=== PATIENT | male | born 1980 | race Caucasian/White ===

== ENCOUNTER 2023-04-15 08:42 | Emergency (ER) | payer OTHER, SELFPAY ==
--- NOTE | 2023-04-15 08:46 | ED.GENMED ---
History of Present Illness
General
Chief Complaint: Seizure
Source: patient and ambulance crew
Exam Limitations: none
Time Seen by Provider: 04/15/23 08:45
Nursing documentation reviewed up to this point in time: agreed with
History of Present Illness
History of Present Illness:
42-year-old male with history of epilepsy, last seizure was over 6 months ago, takes Depakote and Lamictal for his seizures, religiously takes his medications, was sitting on the bed of his young son getting preop lab work at [facility] urgent care for
bilateral myringotomy, when according to his he fell back on the bed, had a grand mal seizure lasting 1 to 2 minutes, came to and then had a second 1 lasting a few seconds and none since.
Patient arrives alert and oriented, states he got little to no sleep during this past night as his son was up all night with bilateral ear pain.
Past History
Past History
ED Past Medical History: Seizures and Other (COVID-18 April 2021)
ED Past Surgical History: Other (pleural effusion drained, chest tube)
Social History
Tobacco: Non-smoker
Alcohol: None
Personal:
Living: with family
Employment: Employed (associate software application engineer)
Review of Systems
Review of Systems
Allergies reviewed?: Yes
Constitutional: Reports fatigue (Feels 'a little groggy')
EENT: Reports no symptoms
Respiratory: Reports no symptoms
Cardiac: Reports no symptoms
ABD/GI: Reports no symptoms
: Denies incontinence
Musculoskeletal: Reports no symptoms
Skin: Reports no symptoms
Neurological: Reports headache (Generalized 5/10); Denies dizzy, weakness or numbness
Phy Exam
Physical Exam
Physical Exam:
GENERAL: No acute distress. A&Ox3.
CONSTITUTIONAL: Afebrile.
EYES: PERRL, conjunctivae normal
Neck: Supple
ENMT: moist mucus membranes, Pharynx nl, no intraoral trauma. Tongue normal
RESPIRATORY: Regular respirations, nonlabored, lungs clear.
CARDIOVASCULAR: Regular rate and rhythm, no murmurs, no rubs.
GI: Soft, nontender, normal BS
MUSCULOSKELETAL: Moves with ease. Well perfused.
SKIN: Warm, dry, pink
PSYCH: Normal mood and affect. Well kept, interactive and appropriate
NEUROLOGIC: Awake, alert and oriented. No focal neurological deficits.
Course
Orders/Labs/Results
Orders:
Orders
04/15/23 08:55
Complete Blood Count/With Diff Urgent
Comprehensive Metabolic Panel Urgent
Depakane Urgent
04/15/23 09:43
Acetaminophen [Tylenol] 1,000 mg PO NOW STA
04/15/23 10:04
Acetaminophen [Tylenol] 500 mg .ROUTE .STK-MED ONE
Abnormal Lab Results
04/15/23 04/15/23
08:49 08:55
RBC 4.06 L 10^6/uL
(4.70-6.10)
Hct 36.8 L %
(39.0-52.0)
MCH 32.3 H pg
(27.0-31.0)
MPV 10.7 H fL
(7.4-10.4)
Neutrophils % 37.8 L %
(42.2-75.2)
Lymphocytes % 55.2 H %
(20.5-51.1)
Carbon Dioxide 21 L mmol/L
(22-30)
BUN 21 H mg/dl
(9-20)
Glucose 125 H mg/dl
(70-99)
POC Glucose 127 H mg/dl
(70-99)
04/15/23 08:55
04/15/23 08:55
Vital Signs
Initial and Last Documented VS:
Initial Vital Signs
Temp Pulse Resp BP Pulse Ox
98.3 F 96 20 140/90 97
04/15/23 08:50 04/15/23 08:50 04/15/23 08:50 04/15/23 08:50 04/15/23 08:50
Last Documented Vital Signs
Temp Pulse Resp BP Pulse Ox
98.3 F 78 18 132/88 98
04/15/23 08:50 04/15/23 10:05 04/15/23 10:05 04/15/23 10:05 04/15/23 10:05
MDM/Problems Addressed
Differential Diagnosis Includes:
Breakthrough Seizure, subtherapeutic antiseizure medication, sleep deprivation
MDM/Problems Addressed:
42-year-old male with history of epilepsy, last seizure was over 6 months ago, takes Depakote and Lamictal for his seizures, religiously takes his medications, was sitting on the bed of his young son getting preop lab work at [facility] urgent care for
bilateral myringotomy, when according to his he fell back on the bed, had a grand mal seizure lasting 1 to 2 minutes, came to and then had a second 1 lasting a few seconds and none since.
Patient arrives alert and oriented, states he got little to no sleep during this past night as his son was up all night with bilateral ear pain.
04/15/2023 0923 AM
CBC with no clinically significant abnormality
CMP: Normal
Valproic acid level 77.2 which is therapeutic
04/15/2023 0930 AM
Patient has a headache 5/10, still feels 'a little groggy.'
Contacted [facility], spoke with Dr. Woo Harley RN, she will get him in to office next week
No further seizures,
Drivers suspension paperwork filed
Pt requesting to go home.
Stable for discharge to care of parents.
04/15/2023 1013 AM
Patient observed ambulating out with normal gait
Chronic conditions affecting care: Neurological disorder (epilepsy)
*Critical Care Note
Total Time (30-74mins, 75-104mins- exclusive of procedures): Not Applicable
ED Attending Note
-
Portions of this chart may have been created with voice recognition software.� Occasional wrong word or��sound alike� substitutions may have occurred due to the inherent limitations of voice recognition software.
Discharge Plan
Departure
Patient Disposition: Home (Routine Discharge)
Date of Disposition: 04/15/23
Time of Disposition: 09:46
Patient with high blood pressure during this ER visit?: Yes
Condition: Good
Discharge Problem:
Breakthrough seizure
Instructions: Seizures, Adult (DC)
Prescriptions:
No Action
clonazepam 0.5 MG tablet
0.5 mg PO HS
zonisamide 100 MG capsule
200 mg PO HS
divalproex 500 MG tablet extended release 24 hr
1,500 mg PO HS
lamotrigine 100 MG tablet
100 mg PO HS
aspirin 81 MG tablet,chewable
81 mg PO DAILY 0RF
metoprolol tartrate 25 MG tablet
25 mg PO BID Qty: 60 0RF
Referrals:
[facility] [Other] - Call in 1-3 days for appt
Patrick Cali DO [Family Provider] -
Activity Restrictions/Additional Instructions:
As we discussed, I spoke with nurse Harley at Dr. Wood's office, she said to call the office and she will get you in next week.
Rest, drink plenty of fluids, get some sleep
Interventions
Interventions:
*Risk Screen - Suicide Last Done: 04/15/23 08:50
*General Assessment Last Done: 04/15/23 08:50
*Neglect/Abuse Screening Last Done: 04/15/23 08:50
ED- Fall Risk Assessment Last Done: 04/15/23 08:50
*ED COVID-19 Vaccine History Last Done: 04/15/23 08:50
*Nursing Disposition Last Done: 04/15/23 10:20
ED- Cardiac Assessment Last Done: 04/15/23 08:54
ED- Neurological Assessment Last Done: 04/15/23 08:50
ED- Pulmonary Assessment Last Done: 04/15/23 08:54
Discharge Date and Time
Discharge Date/Time: 04/15/23 10:26
[2023-04-15 08:50] VITALS: BP 140/90
[2023-04-15 08:52] LABS: Glucose - Point of Care 127 mg/dl (70-99)
[2023-04-15 08:54] VITALS: BMI 24.3
[2023-04-15 09:05] LABS: % Basophils 0.4 % (0-2); % Eosinophils 0.6 % (0-6); % Immature Granulocytes 0.2 % (0-0.5); % Lymphocytes 55.2 % (20.5-51.1); % Monocytes 5.8 % (1.7-9.3); % Neutrophils 37.8 % (42.2-75.2); Absolute Lymphocytes 2.8 10^3/uL (1.2-3.4); Absolute Monocytes 0.3 10^3/uL (0.1-0.6); Absolute Neutrophils 1.9 10^3/uL (1.4-6.5); Hematocrit 36.8 % (39.0-52.0); Hemoglobin 13.1 g/dL (13.0-18.0); Mean Corp Hgb Conc. 35.6 g/dL (33.0-37.0); Mean Corpuscular Hgb 32.3 pg (27.0-31.0); Mean Corpuscular Volume 90.6 fL (80.0-94.0); Mean Platelet Volume 10.7 fL (7.4-10.4); Nucleated Red Blood Cells % 0 % (-); Platelet Count 223 10^3/uL (130-400); Red Blood Cell Count 4.06 10^6/uL (4.70-6.10); Red Cell Dist. Width 13.2 % (11.5-14.5)
[2023-04-15 09:18] LABS: ALT (SGPT) 19 U/L (0-50); AST (SGOT) 27 U/L (17-59); Albumin 4.7 g/dl (3.5-5.0); Alkaline Phosphatase 56 U/L (38-126); Blood Urea Nitrogen 21 mg/dl (9-20); Calcium 9.3 mg/dl (8.4-10.2); Carbon Dioxide 21 mmol/L (22-30); Chloride 107 mmol/L (98-107); Estimated Creatinine Clearance 109 ml/min; Glucose 125 mg/dl (70-99); Potassium 4.6 mmol/L (3.5-5.1); Sodium 139 mmol/L (135-145); Total Bilirubin 0.8 mg/dl (0.2-1.3); Total Protein 7.5 g/dl (6.3-8.2); eGFR > 60.00
[2023-04-15 09:22] LABS: Depakane 77.2 ug/ml (50.0-120.0)
[2023-04-15] MEDS: TYLENOL 1000 MG PO (10:02)
[2023-04-15 10:05] VITALS: BP 132/88
== END 2023-04-15 10:26 | disposition home or self-care (01) ==
LOC: EMR 08:42
PROVIDERS: Registered Nurse; EMERGENCY PHYSICIAN Emergency Medicine; FAMILY PHYSICIAN Family Medicine
DX: G40.909 Epilepsy, unspecified, not intractable, without status epilepticus (principal); R51.9 Headache, unspecified; R03.0 Elevated blood-pressure reading, without diagnosis of hypertension; Z86.16 Personal history of COVID-19; Z79.899 Other long term (current) drug therapy; Z79.82 Long term (current) use of aspirin
CPT/HCPCS: 99283; 80053; 80164; 82962; 85025

== ENCOUNTER 2025-02-02 11:39 | Emergency (ER) | payer OTHER, SELFPAY ==
[2025-02-02 11:46] LABS: Glucose - Point of Care 105 mg/dl (70-99)
[2025-02-02 11:48] VITALS: BP 112/83
--- NOTE | 2025-02-02 11:49 | ED.GENMED ---
History of Present Illness
General
Chief Complaint: Seizure
Time Seen by Provider: 02/02/25 11:41
History of Present Illness
History of Present Illness:
Patient presents to the emergency department after generalized tonic-clonic seizure. He has a history of epilepsy. Last seizure was years ago. No change in his medications. States he had a poor night sleep last night. Had around 1 minute of
generalized tonic-clonic seizing. His called ambulance. He is currently back to baseline. Denies tongue bite or incontinence. Denies fever or neck stiffness. States he is feeling well currently
Past History
Past History
ED Past Medical History: Seizures and Other (COVID-18 April 2021)
ED Past Surgical History: Other (pleural effusion drained, chest tube)
Social History
Tobacco: Non-smoker
Alcohol: None
Personal:
Living: with family
Employment: Employed (software product manager)
Phy Exam
Physical Exam
Physical Exam:
GENERAL APPEARANCE: NAD, well developed/ well nourished
EYES lids/conjunctiva normal
EARS/NOSE/THROAT Mucous membranes moist, uvula midline without oral pharyngeal erythema, exudate or swelling
HEAD/NECK normocephalic atraumatic, neck is supple.
RESPIRATORY respiratory effort normal, speaks in full sentences, no accessory muscle use. Lungs clear to auscultation without rhonchi, wheezes, rales
CARDIAC Regular rate and rhythm, no edema.
ABDOMINAL Soft, ND/NT. No pulsatile masses on exam, rebound tenderness, Ortega sign or pain over Mcburney's point.
MUSCLES/EXTREMITIES No abnormal range of motion, no swelling.
SKIN Warm, pink and dry. No rashes
NEUROLOGICAL normal mental status. Awake and alert. Oriented x3. CN2-12 intact. 5/5 strength in all extremities. Sensation intact to light touch throughout. No dysmetria or ataxia.
PSYCH Normal mood and affect. Judgement/competence is appropriate
Course
Orders/Labs/Results
Orders:
Orders
02/02/25 11:50
Basic Metabolic Panel Urgent
Complete Blood Count/With Diff Urgent
Valproic Acid Level [Depakane] Urgent
Abnormal Lab Results
02/02/25 02/02/25
11:44 11:50
WBC 4.0 L 10^3/uL
(4.8-10.8)
RBC 4.17 L 10^6/uL
(4.70-6.10)
Hct 38.3 L %
(39.0-52.0)
MCH 31.4 H pg
(27.0-31.0)
MPV 10.8 H fL
(7.4-10.4)
Neutrophils % 34.5 L %
(42.2-75.2)
Lymphocytes % 58.2 H %
(20.5-51.1)
Carbon Dioxide 20 L mmol/L
(22-30)
Glucose 102 H mg/dl
(70-99)
POC Glucose 105 H mg/dl
(70-99)
02/02/25 11:50
02/02/25 11:50
Vital Signs
Initial and Last Documented VS:
Initial Vital Signs
Temp Pulse Resp
99.4 F 91 17
02/02/25 11:46 02/02/25 11:46 02/02/25 11:46
Last Documented Vital Signs
Temp Pulse Resp BP
99.4 F 68 15 112/74
02/02/25 11:46 02/02/25 13:00 02/02/25 13:00 02/02/25 13:00
*Pulse Oximetry
Patient hypoxic: no
*Critical Care Note
Total Time (30-74mins, 75-104mins- exclusive of procedures): Not Applicable
ED Attending Note
ED Attending Note
ED Attending Note:
Patient with breakthrough seizure in the setting of epilepsy and poor sleep last night. He is well-appearing on arrival, neurologically intact and back to baseline. There is no evidence of significant trauma. No evidence of secondary causes of
seizure such as trauma, infection, metabolic derangement. Will check basic labs and valproic acid level and monitor patient in the emergency department
d/w patient to not drive until seizure free for 6 at least months and that he has legal obligation to report to DOT in the state of [place]
-
Portions of this chart may have been created with voice recognition software.� Occasional wrong word or��sound alike� substitutions may have occurred due to the inherent limitations of voice recognition software.
Discharge Plan
Departure
Patient Disposition: Home (Routine Discharge)
Date of Disposition: 02/02/25
Time of Disposition: 12:40
Patient with high blood pressure during this ER visit?: No
Discharge Problem:
Breakthrough seizure
Prescriptions:
No Action
clonazepam 0.5 MG tablet
0.5 mg PO HS
zonisamide 100 MG capsule
150 mg PO HS
divalproex 500 MG tablet extended release 24 hr
1,500 mg PO HS
lamotrigine 100 MG tablet
100 mg PO HS
Referrals:
Patrick Cali DO [Family Provider, Family Practice]
Activity Restrictions/Additional Instructions:
Please schedule a follow up appointment with your neurologist.
Return to ER with new or worsening symptoms
Interventions
Interventions:
*Risk Screen - Suicide Last Done: 02/02/25 11:50
*General Assessment Last Done: 02/02/25 11:50
*Neglect/Abuse Screening Last Done: 02/02/25 11:50
*ED COVID-19 Vaccine History Last Done: 02/02/25 11:50
*ED Influenza Vaccine History Last Done: 02/02/25 11:50
[facility] Risk Assessment Tool Last Done: 02/02/25 11:39
*Nursing Disposition Last Done: 02/02/25 13:35
ED- Cardiac Assessment Last Done: 02/02/25 12:05
ED- Neurological Assessment Last Done: 02/02/25 12:05
ED- Pulmonary Assessment Last Done: 02/02/25 12:05
Discharge Date and Time
Discharge Date/Time: 02/02/25 13:37
Print Language: ROMANSH
[2025-02-02 11:50] VITALS: BMI 24.1
[2025-02-02 12:00] VITALS: BP 126/88
[2025-02-02 12:12] LABS: Hematocrit 38.3 % (39.0-52.0); Hemoglobin 13.1 g/dL (13.0-18.0); Mean Corp Hgb Conc. 34.2 g/dL (33.0-37.0); Mean Corpuscular Volume 91.8 fL (80.0-94.0); Platelet Count 224 10^3/uL (130-400); Red Cell Dist. Width 12.6 % (11.5-14.5)
[2025-02-02 12:32] LABS: Blood Urea Nitrogen 19 mg/dl (9-20); Calcium 9.1 mg/dl (8.4-10.2); Carbon Dioxide 20 mmol/L (22-30); Chloride 107 mmol/L (98-107); Estimated Creatinine Clearance 117 ml/min; Glucose 102 mg/dl (70-99); Potassium 4.9 mmol/L (3.5-5.1); Sodium 137 mmol/L (135-145); eGFR > 60.00
[2025-02-02 12:36] LABS: Depakane 69.0 ug/ml (50.0-120.0)
[2025-02-02 13:00] VITALS: BP 112/74
[2025-02-02 13:48] LABS: Nucleated Red Blood Cells % 0 % (-)
== END 2025-02-02 13:37 | disposition home or self-care (01) ==
LOC: EMR 11:39
PROVIDERS: EMERGENCY PHYSICIAN Emergency Medicine; FAMILY PHYSICIAN Family Medicine
DX: G40.909 Epilepsy, unspecified, not intractable, without status epilepticus (principal); Z86.16 Personal history of COVID-19
CPT/HCPCS: 99283; 80048; 80164; 82962; 85025